=== PATIENT | female | born 1945 | race Caucasian/White ===

== ENCOUNTER 2024-01-31 19:25 | Emergency (ER) | payer MEDICARE, OTHER, SELFPAY ==
[2024-01-31 19:28] VITALS: BP 198/106
[2024-01-31 19:57] LABS: % Basophils 0.3 % (0-2); % Eosinophils 1.2 % (0-6); % Immature Granulocytes 0.3 % (0-0.5); % Lymphocytes 22.7 % (20.5-51.1); % Monocytes 9.6 % (1.7-9.3); % Neutrophils 65.9 % (42.2-75.2); Absolute Eosinophils 0.1 10^3/uL (0-0.7); Absolute Lymphocytes 1.4 10^3/uL (1.2-3.4); Absolute Monocytes 0.6 10^3/uL (0.1-0.6); Absolute Neutrophils 3.9 10^3/uL (1.4-6.5); Hematocrit 42.7 % (37.0-47.0); Hemoglobin 14.9 g/dL (12.0-16.0); Mean Corp Hgb Conc. 34.9 g/dL (33.0-37.0); Mean Corpuscular Hgb 28.1 pg (27.0-31.0); Mean Corpuscular Volume 80.6 fL (81.0-99.0); Mean Platelet Volume 9.5 fL (7.4-10.4); Nucleated Red Blood Cells % 0 %; Platelet Count 239 10^3/uL (130-400); Red Cell Dist. Width 12.6 % (11.5-14.5)
[2024-01-31 20:09] LABS: ALT (SGPT) 18 U/L (0-35); AST (SGOT) 25 U/L (14-36); Albumin 4.6 g/dl (3.5-5.0); Alkaline Phosphatase 77 U/L (38-126); Blood Urea Nitrogen 16 mg/dl (7-17); Calcium 9.7 mg/dl (8.4-10.2); Carbon Dioxide 29 mmol/L (22-30); Chloride 97 mmol/L (98-107); Glucose 108 mg/dl (70-99); Lipase 56 U/L (23-300); Potassium 3.7 mmol/L (3.5-5.1); Sodium 132 mmol/L (135-145); Total Bilirubin 1.8 mg/dl (0.2-1.3); Total Protein 7.5 g/dl (6.3-8.2); eGFR > 60.00
--- NOTE | 2024-01-31 23:05 | ED.GENMED ---
Addendum entered and electronically signed by Alana Zuluaga PA-C 02/01/24 10:19:
10:00 am, 02/01/2024:
CT scan of the abdomen pelvis was read by another radiology group which reveals endometrial thickening and 2 nodular soft tissue densities which may reflect endometrial polyps versus endometrial fibroids. Radiology recommends pelvic ultrasound and
or MRI for further evaluation. I called patient today at 10 AM, we spoke about these results. Patient does not follow with [facility] but her primary care provider's is an OBGYN patient states that she can follow-up with them. Patient has an
appointment with her primary care provider next month where she will discuss these results and notify her doctor that a pelvic ultrasound is recommended for follow-up. Patient aware of this and will follow-up. All patient questions were answered.
Original Note:
History of Present Illness
<GARY Stein - Last Filed: 02/01/24 00:19>
General
Chief Complaint: Abdominal Pain
Source: patient and significant other
Exam Limitations: none
Time Seen by Provider: 01/31/24 22:56
Nursing documentation reviewed up to this point in time: agreed with
Travel History
Have you traveled to any high risk areas for coronavirus over the past 14 days?: No
Have you had any contact with someone who has COVID-19?: No
Do you have any symptoms of coronavirus? Fever > 100 degrees, chills, cough, shortness of breath, sore throat, loss of taste or smell, muscle aches, or headache?: No
History of Present Illness
History of Present Illness:
patient is a 78 y/o female with PMH of GERD, hiatal hernia, constipation, and sciatica presenting with abdominal pain x few weeks. Patient admits symptoms are localized to the center of her abdomen. Patient admits the pain was first noticed after
she started exercises for her spinal stenosis. patient took hydroxizine with little relief. Patient admits the pain 'feels like she needs to take a bowel movement.' Patient admits the pain is dull and worse with food. patient admits to nausea with
no vommiting and a history of constipation. patient admits that over the last few weeks she has felt less hungry and does not want to eat. Patient admits that she has felt bloated and distended for 1 month. Patient admits to having a colonscopy 2
years ago that was unremarkable. Patient denies blood in the stool, CP, SOB, changes to urination, vaginal bleeding. Patient denies recent alcohol intake or smoking. Denies recent travel. Patient has a history of cholecystectomy and 3 C sections.
Last Bowel movement was this morning. Only recent change to medication was gabapentin added but it was discontinued after a single use due to facial flushing.
Past History
<GARY Stein - Last Filed: 02/01/24 00:19>
Past History
ED Past Medical History: GERD, HTN, Psychiatric (Anxiety and depression) and Other (Hiatal hernia, constipation)
ED Past Surgical History: Cholecystectomy, (�3) and Orthopedic (Right hip surgery, left ankle surgery)
Patient has exhibited threatening behavior?: No
Social History
Tobacco: Former smoker
Alcohol: None
Drug: None
Personal:
Living: with family
Review of Systems
<GARY Stein - Last Filed: 02/01/24 00:19>
Review of Systems
Allergies reviewed?: Yes
Constitutional: Reports no symptoms
EENT: Reports no symptoms
Respiratory: Reports no symptoms
Cardiac: Reports no symptoms
ABD/GI: Reports abdominal pain, nausea, constipated, anorexia and other (bloating)
: Reports no symptoms
Musculoskeletal: Reports edema
Skin: Reports no symptoms
Neurological: Reports no symptoms
Psychiatric: Reports anxiety
Phy Exam
<GARY Stein - Last Filed: 02/01/24 00:19>
General Physical Exam
General Presentation: mild distress
General age: appears stated age
General Skin: warm
General Habitus: normal
General Mental: alert and anxious
General Hydration: appears well hydrated
Cardiovascular Exam
Cardiovascular Exam: regular rate/rhythm, normal peripheral pulses and other (LE edema noted b/l)
Heart Sounds: normal
Pulmonary Exam
Pulmonary Exam: lungs clear and no respiratory distress
Gastrointestinal Exam
Gastrointestinal Exam: normal bowel sounds, no bruit, no masses and tender (tenderness to epigastric region)
Palpation: generalized: Moderate tenderness (epigastric region )
Abdominal Scars: horizontal suprapubic
Auscultation of Abdomen: normal
Course
Noelt;GARY Stein - Last Filed: 02/01/24 00:19>
Orders/Labs/Results
Orders:
Orders
01/31/24 19:39
Complete Blood Count/With Diff Urgent
Comprehensive Metabolic Panel Urgent
Lipase Urgent
02/01/24 00:36
CT Abd/pelvis W Iv Cont Urgent
Comment:
Reason For Exam: diffuse lower abd pain
02/01/24 02:40
Urinalysis Reflex To Culture Urgent
Date Specimen was Collected: 02/01/24
Time Specimen was Collected: 02:37
Abnormal Lab Results
01/31/24 02/01/24
19:39 02:40
MCV 80.6 L fL
(81.0-99.0)
Monocytes % 9.6 H %
(1.7-9.3)
Sodium 132 L mmol/L
(135-145)
Chloride 97 L mmol/L
(98-107)
Creatinine 0.5 L mg/dL
(0.6-1.0)
Glucose 108 H mg/dl
(70-99)
Total Bilirubin 1.8 H mg/dl
(0.2-1.3)
Urine Ketones 1+ A
(Negative)
01/31/24 19:39
01/31/24 19:39
Vital Signs
Initial and Last Documented VS:
Initial Vital Signs
Temp Pulse Resp BP Pulse Ox
98.5 F 89 18 198/106 98
01/31/24 19:28 01/31/24 19:28 01/31/24 19:28 01/31/24 19:28 01/31/24 19:28
Last Documented Vital Signs
Temp Pulse Resp BP Pulse Ox
98.0 F 78 20 190/97 92
01/31/24 23:26 01/31/24 23:26 01/31/24 23:26 01/31/24 23:29 01/31/24 23:26
<Beltran Jones, DO - Last Filed: 02/01/24 03:19>
Orders/Labs/Results
Orders:
Orders
01/31/24 19:39
Complete Blood Count/With Diff Urgent
Comprehensive Metabolic Panel Urgent
Lipase Urgent
02/01/24 00:36
CT Abd/pelvis W Iv Cont Urgent
Comment:
Reason For Exam: diffuse lower abd pain
02/01/24 02:40
Urinalysis Reflex To Culture Urgent
Date Specimen was Collected: 02/01/24
Time Specimen was Collected: 02:37
Abnormal Lab Results
01/31/24 02/01/24
19:39 02:40
MCV 80.6 L fL
(81.0-99.0)
Monocytes % 9.6 H %
(1.7-9.3)
Sodium 132 L mmol/L
(135-145)
Chloride 97 L mmol/L
(98-107)
Creatinine 0.5 L mg/dL
(0.6-1.0)
Glucose 108 H mg/dl
(70-99)
Total Bilirubin 1.8 H mg/dl
(0.2-1.3)
Urine Ketones 1+ A
(Negative)
01/31/24 19:39
01/31/24 19:39
Vital Signs
Initial and Last Documented VS:
Initial Vital Signs
Temp Pulse Resp BP Pulse Ox
98.5 F 89 18 198/106 98
01/31/24 19:28 01/31/24 19:28 01/31/24 19:28 01/31/24 19:28 01/31/24 19:28
Last Documented Vital Signs
Temp Pulse Resp BP Pulse Ox
98.0 F 78 20 190/97 92
01/31/24 23:26 01/31/24 23:26 01/31/24 23:26 01/31/24 23:29 01/31/24 23:26
<GARY Stein - Last Filed: 02/01/24 00:19>
MDM/Problems Addressed
Differential Diagnosis Includes:
PUD
SBO
Constipation
diverticulitis
MDM/Problems Addressed:
78 y/o female with abdominal pain x few weeks
Chronic conditions affecting care: HTN, Psychiatric illness and Other (GERD, hiatal hernia, sarcoidosis, sciatica, anxiety, migraines)
<GARY Stein - Last Filed: 02/01/24 00:19>
*Critical Care Note
Total Time (30-74mins, 75-104mins- exclusive of procedures): Not Applicable
<Beltran Jones DO - Last Filed: 02/01/24 03:19>
*Critical Care Note
Total Time (30-74mins, 75-104mins- exclusive of procedures): Not Applicable
<Beltran Jones DO - Last Filed: 02/01/24 03:19>
Update Note
Update Note:
CT ABDOMEN/PELVIS WITH CONTRAST
IMPRESSION:
1. No acute abnormality within the abdomen or pelvis.
2. No bowel obstruction. Status post cholecystectomy. Normal appendix.
Incidentals:
-Diverticulosis without evidence of diverticulitis. Moderate hiatal hernia
- No obstructive uropathy.
- No hepatic or pancreatic mass.
- No abdominal aortic aneurysm.
- No acute osseous abnormality.
- No acute abnormality within the visualized lungs.
-Small low-density fluid within the lower abdominal subcutaneous tissue, may represent sebaceous cyst.
Case finalized on Feb 01 2024 1:48AM ET
Back in to see patient. She is ambulating around the room. Discussed CAT scan and lab work. She is giving us a urine sample.
ED Attending Note
<GARY Stein - Last Filed: 02/01/24 00:19>
-
Portions of this chart may have been created with voice recognition software.� Occasional wrong word or��sound alike� substitutions may have occurred due to the inherent limitations of voice recognition software.
<Beltran Jones DO - Last Filed: 02/01/24 03:19>
ED Attending Note
Patient seen and examined by attending physician: Yes
I performed the substantive portion of visit, reviewed & personally made and approve the management plan that is documented in note by myself or SHERITA.: Yes
ED Attending Note:
Pleasant 78-year-old female that presents with diffuse lower abdominal pain that is been going on for several months. Patient states that for the last few weeks the pain has worsened and today it was more persistent than normal. Patient was sent
to physical therapy for recent diagnosis of spinal stenosis. She states that during the physical therapy sessions the abdominal pain began. Patient did have a colonoscopy 2 years ago which was normal. Patient states that she also saw her
therapist for 'nocturnal eating '. She states that she has high anxiety and often found herself in the kitchen eating in the middle the night. Patient states that Mira[employer] daily allows her to move her bowels. Patient denies fever, chills, nausea
or vomiting. Reports no chest pain or shortness of breath. Patient was seen in conjunction with the PA student. I have reviewed and agree with the history and treatment plan presented. On my independent physical exam, patient is awake, alert,
and oriented x3 minimal to no acute distress. Abdominal sounds are normal. No tenderness to palpation elicited. Plan is CAT scan.
Discharge Plan
Departure
Patient Disposition: Home (Routine Discharge)
Date of Disposition: 02/01/24
Time of Disposition: 03:16
Patient with high blood pressure during this ER visit?: Yes
Condition: Good
Discharge Problem:
Abdominal pain
Instructions: Abdominal Pain, BLOOD PRESSURE
Prescriptions:
New
dicyclomine 10 mg capsule
10 mg PO QID PRN (Reason: abdominal pain) Qty: 10 0RF
Referrals:
Cheo Dial, [Family Provider] - Call in 1-3 days for appt
Activity Restrictions/Additional Instructions:
It was a pleasure meeting you and taking part in your care. We hope for your continued healing and wellness.
Please read discharge instructions in their entirety. However, they are for general education and may not describe your exact diagnosis at discharge. Information on your ER visit and medical conditions were discussed with you along with appropriate
follow up information...
If indicated, please take your medications as instructed and indicated on discharge paperwork.
Please schedule a follow up appointment as directed. Call to schedule an appointment
Please return to the emergency department with ANY change in, persisting, or worsening of symptoms. If any of your symptoms do not improve, or persist, or become more severe within 6-12 hours, please return to the emergency department for further
care.
Please return to the emergency department if you develop a headache, neck pain/stiffness, fever greater than 100.4F, chest pain, shortness of breath, persistent nausea, vomiting, slurred speech, difficulty walking, numbness/tingling, weakness, signs
of infection or any other symptoms that are worrisome to you.
If you have any questions or concerns please do not hesitate to call the Hospital at or E-mail me directly at [email or web address]
Interventions
Interventions:
*General Assessment Last Done: 01/31/24 19:28
*Neglect/Abuse Screening Last Done: 01/31/24 19:28
[facility] Assessment Last Done: 01/31/24 23:29
[2024-01-31 23:24] VITALS: BMI 42.1
[2024-01-31 23:29] VITALS: BP 190/97
[2024-02-01 03:00] VITALS: BP 184/99
[2024-02-01 03:11] LABS: Urine Albumin Negative (Neg - Trace); Urine Bilirubin Negative (Negative); Urine Character Clear (Clear); Urine Color Yellow; Urine Glucose Negative (Negative); Urine Ketone 1+ (Negative); Urine Leukocyte Negative (Negative); Urine Nitrite Negative (Negative); Urine Occult Blood Negative (Negative); Urine Specific Gravity 1.005 (<1.030); Urine Urobilinogen Negative (Neg - 1+)
== END 2024-02-01 03:31 | disposition home or self-care (01) ==
LOC: EMR 19:25
PROVIDERS: Emergency Medicine; EMERGENCY PHYSICIAN Student in an Organized Health Care Education/Training Program; FAMILY PHYSICIAN Family Medicine
DX: R10.9 Unspecified abdominal pain (principal); I10 Essential (primary) hypertension; K21.9 Gastro-esophageal reflux disease without esophagitis; K44.9 Diaphragmatic hernia without obstruction or gangrene; K59.00 Constipation, unspecified; F41.8 Other specified anxiety disorders; Z87.891 Personal history of nicotine dependence; Z90.49 Acquired absence of other specified parts of digestive tract
CPT/HCPCS: 99284; 74177; 80053; 81003; 83690; 85025; Q9967